=== PATIENT | female | born 1990 | race Caucasian/White ===

== ENCOUNTER 2025-06-20 12:31 | Emergency (ER) | payer BC, SELFPAY ==
--- NOTE | ~2025-06-20 | XR_ITS ---
EXAMINATION: XR CHEST CLINICAL INFORMATION: chest pain and dyspnea COMPARISON: None available. TECHNIQUE: 2 views of the chest were obtained. FINDINGS: The cardiac, hilar, and mediastinal contours are normal. The lungs are clear bilaterally. There is no pneumothorax or pleural effusion. There is no focal osseous or soft tissue abnormality. Mild degenerative spinal changes. XR/XR chest 2V IMPRESSION: No active pulmonary disease. Electronically signed by: Gurpreet Rondon MD 06/20/2025 01:21 PM EDT
--- NOTE | 2025-06-20 12:35 | ECG_ITS ---
Test Reason : CHEST PAIN Blood Pressure : */* mmHG Vent. Rate : 108 BPM Atrial Rate : 108 BPM P-R Int : 122 ms QRS Dur : 88 ms QT Int : 354 ms P-R-T Axes : 48 -54 57 degrees QTcB Int : 474 ms Sinus tachycardia Left anterior fascicular block Cannot rule out Anterior infarct , age undetermined Abnormal ECG No previous ECGs available Referred By: Generic ED Physician Electronically Signed By: NICOLETTE CLARKE
[2025-06-20 12:54] VITALS: BP 131/72; PULSE 107; RESP 16; TEMP 36.7; O2SAT 95; BMI 48.1
--- NOTE | 2025-06-20 12:58 | ED_ITS ---
HPI - General Adult General Chief complaint: Chest Pain Stated complaint: Chest pain, SOB Time Seen by Provider: 06/20/25 17:31 Source: patient Mode of arrival: ambulatory Limitations: no limitations History of Present Illness ED Provider: Rosaura Martinez PA-C HPI narrative: Patient seeks medical attention in the emergency department today for evaluation of right-sided chest wall pain. It is worse with deep inspiration and occurred after having a tuna sandwich this morning. She has not tried to eat again since this time. It is not painful when she swallows, but since pain started after eating, she was worried eating would make worse. She denies history of heartburn and has not tried any medicine to try to make this go away. No ETOH use. Patient does not feel sick denies any globus sensation. No fevers no chills no night sweats does not feel short of breath no difficulty with breathing. Denies any falls or trauma no paresthesias backache abdominal discomfort nausea vomiting or diarrhea. Denies noticing any rashes. Pain is worse with movement. She has not tried to lay down since. Mom with hx of stroke. Patient has no hx of VTE and denies any surgeries. She does do a lot of exertional activity at work but does not recall any specific injury. She does not feel winded or sob. No headaches or backache. Related Data Previous Rx's ?Medication ?Instructions ?Recorded lidocaine 5 % topical patch 1 patch topical DAILY pain #30 ea 06/20/25 Allergies Allergy/AdvReac Type Severity Reaction Status Date / Time No Known Allergies Allergy Verified 06/20/25 12:55 Review of Systems 2 Review of Systems: Yes all other systems are reviewed and are negative [facility] Past Medical History Attestation statement: The following information was validated with the patient. Source: old records reviewed and nursing notes reviewed Social History Social History Advance Directives: No Advance Directives Information Provided: No Physical Exam ED Vital Signs: Vital Signs - 24 hr 06/20/25 12:54 06/20/25 18:54 06/20/25 19:08 Temperature 98.0 F 98.2 F Pulse Rate 107 H 88 88 Respiratory Rate 16 18 18 Blood Pressure 131/72 133/100 H 133/100 H Pulse Oximetry 95 97 97 Oxygen Delivery Method Room Air Room Air Room Air BMI result Body Mass Index 48.1 Const General: cooperative, healthy appearing, comfortable, no acute distress, well developed and acute distress Nutritional Appearance: obese Orientation/consciousness: patient oriented x3 Limitations: language barrier HENMT Head: Yes normal to inspection General nose exam: Normal external nose present Mouth: Normal oral and palatal mucosa present, lip normal, tongue normal, oropharynx normal and moist mucous membranes Teeth and gingiva: dentition normal Throat: Yes posterior oropharynx normal Eyes General: appearance normal, both eyes and all related structures Periorbital: periorbital findings normal Eyelids: Yes eyelids normal Conjunctivae: conjunctivae normal Sclerae: sclerae normal Corneas: corneas normal Pupils: Equal, round and reactive pupils present EOM: EOMs intact bilaterally Neck Neck: Yes normal visual inspection, Yes full ROM and Yes no lymphadenopathy Carotids: normal carotid upstroke Chest Chest palpation & inspection: normal inspection of the chest, normal palpation of entire chest wall and other (right pectoralis major TTP, no crepitus, rash or skin changes) Resp Effort & Inspection: normal respiratory effort, able to speak in complete sentences and other (Negative psoriasis entire testing no scapular winging no chest wall tender) Auscultation: clear to auscultation bilaterally Cardio Jugular venous distension: no JVD Palpation: normal PMI Rate: regular rate Rhythm: regular rhythm Peripheral pulses: Peripheral pulses 2+ throughout GI Inspection: Yes normal to inspection Percussion: Yes normal to percussion Rectal Exam - Female: deferred General: Yes no CVA tenderness Back/Spine/Pelvis Back: no CVA tenderness Skin General skin exam: no rashes or lesions noted Neuro General: patient oriented x3 Cranial nerves: Yes Equal, round and reactive pupils present Course Course Course Narrative: This is a rapid medical exam performed by Burke Jacobson NP: Additional HPI, ROS, PE not included below will be deferred to primary provider. Patient is a 34-year-old female with history of asthma presenting with complaint of chest pain, dyspnea. Plan: EKG, labs, CXR, viral serology Medications Administered Discontinued Medications Generic Name Dose Route Start Last Admin Trade Name Freq PRN Reason Stop Dose Admin Lidocaine/Diphenhydr/Alum/Mg/Simeth 10 ml 06/20/25 18:10 06/20/25 18:19 Mag&Al/Sim/Diphenhyd/Lidocaine 10 Ml Oral.Susp PO 06/20/25 18:11 10 ml ONCE ONE Administration Protocol Medical Decision Making Medical Decision Making [facility] Narrative: Well-appearing 34-year-old female presenting to the emergency department today for evaluation of right-sided chest wall pain that is worse with deep inspiration. No hx of trauma or PE. This occurred after having a tuna sandwich earlier today denies any dyspepsia other GI symptoms. This potentially could be heartburn versus chest wall pain. PERC score for PE is 1 deemed very unlikely. She is low risk for PE with 1.5 points via Wells score. Ptient had RME with EKG troponins and basic labs ordered with EKG. Pneumonia and viral URI seems very unlikely as patient is denying any infectious symptoms. She was tested for COVID flu and RSV this is negative. EKG with evidence for sinus tachycardia and left anterior fascicular block with no prior for comparison. Patient's troponins are negative and flat ACS can be ruled out. Chest x-ray with no findings pneumothorax and pneumonia can be ruled out. There is no widened mediastinum pulses are equal and symmetric she is normotensive is felt very unlikely that patient does not have aortic dissection. She was given a GI cocktail to trial for improvement of symptoms but did discuss potential imaging versus another lab value if unrelieved to rule out definitively a PE however pain is now absent and she is no longer tachycardic. Does not appear to be consistent with anxiety either. Patient given the magic mouthwash cocktail. Patient was reevaluated at beside. She reports slight improvement with her symptoms. She still has anterior chest wall tenderness with pushing on muscle but otherwise other chest pain fully resolved. vitals were rechecked she is not hypoxic or tachycardic this argues even more against having a pulmonary embolism. Patient has declined additional testing for this at this time and requests to go home feeling better. Troponin is negative. ACS can be ruled out. She will follow up outpatient with PCP/cards and return to ED for concerns. Overall impression is likely reflux and thoracic wall strain. Differential Diagnosis Differential Diagnoses: The differential diagnosis associated with the presentation includes See [facility] Admission/Observation Consideration of admission/observation: Escalation of care including admission/observation considered Lab Data [facility] Lab Attestation statement: I reviewed the patient's lab results. 06/20/25 13:32 06/20/25 13:32 Labs: Lab Results 06/20/25 06/20/25 Range/Units 13:32 17:11 WBC 7.7 (4.8-10.8) X10*3/uL RBC 5.24 (4.20-5.50) X10*6/uL Hgb 13.1 (12.0-16.0) g/dl Hct 40.0 (37.0-47.0) % MCV 76.3 L (80.0-98.0) fL MCH 25.0 L (27.0-33.0) pg MCHC 32.8 (31.0-35.0) g/dl RDW 14.3 (11.0-16.0) % Plt Count 329 (160-400) X10*3/uL MPV 10.0 (9.4-12.3) fL Immature Gran % (Auto) 0.4 (0.0-0.4) % Neut % (Auto) 66.4 (45-73) % Lymph % (Auto) 25.8 (20-40) % Harper % (Auto) 5.2 (2-11) % Eos % (Auto) 1.9 (0-4) % Baso % (Auto) 0.3 (0-2) % Lymph # (Auto) 2.0 (1.2-4.9) X10*3/uL Harper # (Auto) 0.4 (0.1-1.2) X10*3/uL Eos # (Auto) 0.2 (0.0-0.4) X10*3/uL Baso # (Auto) 0.0 (0.0-0.2) X10*3/uL Abs Immat Gran (auto) 0.03 (0.00-0.03) X10*3/uL Absolute Neuts (auto) 5.1 (2.0-8.3) x10*3/uL Absolute Nucleated RBC 0.000 (0.0-0.012) X10*3/uL Nucleated RBC % (auto) 0.0 (0.0-0.2) /100WBC Sodium 142 (135-145) mmol/L Potassium 4.3 (3.3-5.1) mmol/L Chloride 104 (96-108) mmol/L Carbon Dioxide 30 H (22-29) mmol/L Anion Gap 12 (12-20) BUN 12 (9-16) mg/dL Creatinine 0.78 (0.5-1.4) mg/dL Estim Creat Clear Calc 134.1 Estimated GFR > 60 Random Glucose 94 (60-115) mg/dL Calcium 9.3 (8.4-10.2) mg/dL Total Bilirubin 0.3 (0.0-1.0) mg/dL AST 18 (5-31) U/L ALT 15 (0-31) U/L Alkaline Phosphatase 67 (39-117) U/L Troponin I High Sens < 2.7 < 2.7 (<3.5-17.0) ng/L Total Protein 7.5 (6.5-8.0) g/dL Albumin 4.4 (3.5-5.0) g/dL Beta HCG, Quant < 2 mIU/mL Influenza Type A (PCR) NEGATIVE (Negative) Influenza Type B (PCR) NEGATIVE (Negative) RSV RNA Qual (PCR) NEGATIVE (Negative) SARS-CoV-2 RNA (RT-PCR) NEGATIVE (Negative) Independent Interpretation I performed an independent interpretation of an: EKG and Plain X-Ray Interpretation: nO life threatening arrythmia Sinus tach. LAFB. No current CP- none for comparison not likely acute or contributory today. CXR No widened mediatstinum. No PTX/ PNA. Radiology Impression Discussion of test interpretation with radiology: I have reviewed the radiologist's reading. Tests considered The following testing was considered but not selected: Would have considered CTA had PE been ML dx. Social Determinants Patient?s care significantly limited by Social Determinants of Health including: Other Social Determinant of Health Discharge Plan Discharge Clinical Impression: Chest pain, Costalchondritis Patient Disposition: Home, Self-Care Instructions: Chest Pain (ED) Additional Instructions: You were seen in the emergency department today due to right-sided chest wall pain that is reproducible with palpation but given your complaint that it hurts worse with inspiration you had a cardiac workup done today that showed no acute coronary syndrome pneumonia or malignant arrhythmia. Your vitals improved without any medical intervention it is felt strongly that you do not have a pulmonary embolism however we did discuss this wrist. Given that your pain is reproducible with the palpation it is felt that your condition is most consistent with inflammation of your chest wall. Have given you a prescription for lidocaine patches for which you can put on the area of most discomfort. Please avoid any aggravating activity. Should you experience any shortness of breath or worsening chest pain please return immediately to emergency department. Hope you continue to feel well. Prescriptions: New lidocaine 5 % adhesive patch,medicated 1 patch topical DAILY Qty: 30 0RF Rx Instructions: leave on most painful area for up to 12 hrs Referrals: Physician,Valentina J [Primary Care Provider, Medical] Stand Alone Forms: Work/School Release Interventions: ED Discharge Assessment Last Done: 06/20/25 19:08 Discharge Date/Time: 06/20/25 19:08 Print Language: Romanian
[2025-06-20 14:16] LABS: MANUAL DIFF FLAG NO
[2025-06-20 14:20] LABS: Hematocrit 40.0 % (37.0-47.0); Hemoglobin 13.1 g/dl (12.0-16.0); Imm Gran Abs Auto 0.03 X10*3/uL (0.00-0.03); Imm Gran Pct Auto 0.4 % (0.0-0.4); Lymphocytes Absolute Auto 2.0 X10*3/uL (1.2-4.9); Mean Corpuscular HGB Conc 32.8 g/dl (31.0-35.0); Mean Corpuscular Hemoglobin 25.0 pg (27.0-33.0); Mean Corpuscular Volume 76.3 fL (80.0-98.0); NRBC Abs Auto 0.000 X10*3/uL (0.0-0.012); NRBC Pct Auto 0.0 /100WBC (0.0-0.2); Platelet Count 329 X10*3/uL (160-400); Red Blood Count 5.24 X10*6/uL (4.20-5.50); White Blood Count 7.7 X10*3/uL (4.8-10.8)
[2025-06-20 14:49] LABS: Alanine Aminotransferase 15 U/L (0-31); Albumin Level 4.4 g/dL (3.5-5.0); Alkaline Phosphatase 67 U/L (39-117); Anion Gap 12 (12-20); Aspartate Amino Transferase 18 U/L (5-31); Blood Urea Nitrogen 12 mg/dL (9-16); Calcium 9.3 mg/dL (8.4-10.2); Carbon Dioxide 30 mmol/L (22-29); Chloride 104 mmol/L (96-108); Creatinine Clr Calc Pharmacy 134.1; Estimated Glomerular Filt Rate > 60; Potassium 4.3 mmol/L (3.3-5.1); Sodium 142 mmol/L (135-145); Total Protein 7.5 g/dL (6.5-8.0)
[2025-06-20 14:51] LABS: Troponin-I High Sensitivity < 2.7 ng/L (<3.5-17.0)
[2025-06-20 14:55] LABS: Resp Syncy Virus RNA Qual PCR NEGATIVE (Negative); SARS COV2 PCR INHOUSE NEGATIVE (Negative)
[2025-06-20 17:38] LABS: Troponin-I High Sensitivity < 2.7 ng/L (<3.5-17.0)
[2025-06-20] MEDS: Mag&Al/Sim/Diphenhyd/Lidocaine 10 ML ORAL.SUSP PO (18:19)
[2025-06-20 18:54] VITALS: BP 133/100; PULSE 88; RESP 18; O2SAT 97
[2025-06-20 19:08] VITALS: BP 133/100; PULSE 88; RESP 18; TEMP 36.8; O2SAT 97
== END 2025-06-20 19:08 | disposition home or self-care (01) ==
PROVIDERS: Registered Nurse Emergency; Emergency Provider Emergency Medicine
DX: R07.89 Other chest pain (principal); M94.0 Chondrocostal junction syndrome [Tietze]
CPT/HCPCS: 36415; 71046; 80053; 84484; 84702; 85025; 87637; 93005; 99283; 99284

== ENCOUNTER → 2025-06-20 12:35 | Outpatient (BNV) | payer BC, SELFPAY | PROVIDERS: Emergency Provider Emergency Medicine; Visit Provider Internal Medicine | DX: I44.4 Left anterior fascicular block (principal); R00.0 Tachycardia, unspecified | CPT/HCPCS: 93010 ==

== ENCOUNTER → 2025-06-20 12:59 | Outpatient (BNV) | payer BC, SELFPAY | PROVIDERS: Visit Provider Radiology Diagnostic Radiology | DX: R06.00 Dyspnea, unspecified (principal) | CPT/HCPCS: 71046 ==

== ENCOUNTER 2025-08-26 15:25 | Emergency (ER) | payer OTHER, BC, SELFPAY ==
--- NOTE | ~2025-08-26 | CT_ITS ---
CLINICAL HISTORY: pain, injury CT lumbar spine without contrast Comparison: None provided Findings: Kyphotic curvature of the thoracic spine. Mild osteopenia. Diffuse idiopathic skeletal hyperostosis No significant degenerative change. Visualized abdominal contents unremarkable. IMPRESSION: 1. Kyphotic curvature of the thoracic spine. 2. Diffuse idiopathic skeletal hyperostosis. 3. Mild osteopenia. 4. No acute osseous injury. This document has been electronically signed by: Arsalan Ramirez MD on 08/26/2025 17:30:05
--- NOTE | ~2025-08-26 | CT_ITS ---
CLINICAL HISTORY: pain, injury CT thoracic spine without contrast Comparison: None provided Findings: Kyphotic curvature of the thoracic spine. Mild osteopenia. Diffuse idiopathic skeletal hyperostosis. No significant degenerative change. Normal visualized lungs and mediastinum. Upper abdominal contents unremarkable. IMPRESSION: 1. Kyphotic curvature of the thoracic spine. 2. Mild osteopenia. 3. Diffuse idiopathic skeletal hyperostosis. 4. No acute osseous injury. This document has been electronically signed by: Arsalan Ramirez MD on 08/26/2025 17:32:39
[2025-08-26 15:28] VITALS: BP 141/61; PULSE 97; RESP 16; TEMP 36.3; O2SAT 98; BMI 47.0
--- NOTE | 2025-08-26 15:29 | ED.GENADULT ---
HPI - General Adult General Chief complaint: Back Pain/Injury Stated complaint: wc injury, meds not working, severe pain Time Seen by Provider: 08/26/25 17:42 Source: patient, RN notes reviewed, old records reviewed and certified court interpreter Mode of arrival: ambulatory Limitations: language barrier History of Present Illness ED Provider: Pauline FERNANDO narrative: 34-year-old female presents for evaluation of back pain. She has left mid to lower back pain that started last Tuesday. She reports while at work she was lifting a heavy bucket off of a high shelf. She had immediate pain in the left back. She followed up with worker's comp and saw a physician provided by her employer. She reports that she was given meloxicam but only took 1 dose in his was changed to Celebrex pain She is also taking methocarbamol. She reports he is medications did not seem to be helping her pain. She was also told that she can not take the methocarbamol prior to going to work The patient is upset because she does not feel that she can adequately work but is being told that she needs to go back to full duty. She states that while she is on light duty for 3 days the sitting all day cause severe pain. She reports that her pain radiates down her left lower back to She denies any numbness, tingling, weakness but has 10/10 pain Related Data Previous Rx's ?Medication ?Instructions ?Recorded lidocaine 5 % topical patch 1 patch topical DAILY pain #30 ea 06/20/25 dexamethasone 4 mg tablet 4 mg PO BID #6 tabs 08/26/25 omeprazole 40 mg capsule,delayed 40 mg PO DAILY #7 caps 08/26/25 release oxycodone 5 mg tablet 5 mg PO Q6H PRN severe pain (scale 08/26/25 score 7-10) #12 tabs Allergies Allergy/AdvReac Type Severity Reaction Status Date / Time No Known Allergies Allergy Verified 08/26/25 15:34 Review of Systems Constitutional: Constitutional: Denies body ache(s), Denies chills, Denies fever(s) and Denies headache(s) Eyes: Eyes: Denies blurry vision ENT: Denies dizziness and Denies headache(s) Cardiovascular: Cardiovascular: Denies chest pain and Denies dyspnea on exertion Respiratory: Respiratory: Denies cough and Denies dyspnea on exertion Gastrointestinal: Gastrointestinal: Denies abdominal pain, Denies nausea and Denies vomiting Musculoskeletal: Musculoskeletal: Reports back pain, Denies numbness, Reports radiating pain into limb and Denies stiffness Integumentary/Breasts: Skin/Breast: Denies rash Neurologic: Denies dizziness, Denies headache(s) and Denies numbness Psychiatric: Psychiatric: Denies anxiety PMFSH Social History Social History Smoked in Last 30 Days: No Use of substances other than those prescribed or required for medical reasons: No Advance Directives: No Advance Directives Information Provided: No Do you have a plan to hurt others: No Plan Patient : No Physical Exam ED Vital Signs: Vital Signs - 24 hr 08/26/25 15:28 08/26/25 17:26 08/26/25 18:49 Temperature 97.3 F 98.4 F 98.4 F Pulse Rate 97 87 87 Respiratory Rate 16 16 16 Blood Pressure 141/61 H 156/94 H 156/94 H Pulse Oximetry 98 97 97 Oxygen Delivery Method Room Air Room Air Room Air BMI result Body Mass Index 47.0 Const General: healthy appearing, comfortable, no acute distress, alert and awake Nutritional Appearance: well nourished Orientation/consciousness: patient oriented x3 HENMT Head: Yes normocephalic and Yes atraumatic Eyes Eyelids: Yes eyelids normal Conjunctivae: conjunctivae normal Sclerae: sclerae normal Corneas: corneas normal Pupils: Equal, round and reactive pupils present EOM: EOMs intact bilaterally Neck Neck: Yes full ROM Resp Effort & Inspection: normal respiratory effort, able to speak in complete sentences and not labored GI Inspection: No distended Palpation (GI): Soft to palpation, not firm, nontender, no guarding and not rigid Back/Spine/Pelvis Other: Tenderness in the left thoracic and left lumbar paraspinous region. No vertebral tenderness in the thoracic or lumbar spine. Straight leg raise positive on the left. Skin General skin exam: elasticity normal Neuro General: patient oriented x3 Cranial nerves: Yes Equal, round and reactive pupils present and Yes Bilaterally intact EOM present Cognition (Neuro): normal cognition Motor exam (neuro): 5/5 motor strength present throughout Extrem Other: Moving all extremities well without any obvious deformities Course Course Course Narrative: Rapid medical examination performed in triage by Christy Rico PA-C. Patient is a 34 year old assigned female at presenting to the emergency department with back pain. Patient states a week ago she attempted to lift a 50lbs-toi bucket and her back froze and she is now having pain. Patient states that she saw [facility] occupational medication where she was given anti-inflammatories and muscle relaxers. Patient states that she got an x-ray that showed evidence of issues with the bones and the muscles. Detailed physical exam and review of systems are deferred to the mid level clinician. Imaging ordered. Patient placed back in the waiting room pending room availability and results. Medications Administered Discontinued Medications Generic Name Dose Route Start Last Admin Trade Name Cristel PRN Reason Stop Dose Admin Dexamethasone 4 mg 08/26/25 18:03 08/26/25 18:15 Dexamethasone 4 Mg Tablet PO 08/26/25 18:04 4 mg ONCE ONE Administration Morphine Sulfate 4 mg 08/26/25 18:03 08/26/25 18:15 Morphine Sulfate 4 Mg/Ml Cartridge IM 08/26/25 18:04 4 mg ONCE ONE Administration Protocol Ondansetron HCl 4 mg 08/26/25 18:03 08/26/25 18:15 Ondansetron Odt 4 Mg Tab.Rapdis TRANSLINGU 08/26/25 18:04 4 mg ONCE ONE Administration Medical Decision Making Medical Decision Making MDM Narrative: 34-year-old female presents for evaluation of back pain. She reports having had an outpatient x-ray. Denies any warning signs for cauda equina syndrome, no incontinence, weakness, numbness or tingling. Her strength is 5/5 and equal bilaterally. She has a positive straight leg raise in the left, raising the suspicion for sciatica. She had a CT scan of the thoracic and lumbar spine ordered in triage. This shows evidence of scoliosis but no fractures or compression deformities. The patient's vital signs are stable, she is not . We will treat her pain with a dose of dexamethasone and morphine IM. The patient reports that she is prediabetic and I encouraged her to keep an eye on her sugars while taking dexamethasone as it will likely increase son. I also ordered omeprazole to take as she is taking steroids with NSAIDs for GI prophylaxis Differential Diagnosis Differential Diagnoses: The differential diagnosis associated with the presentation includes Muscle strain Contusion Sciatica Radiculopathy Compression fracture Lab Data Labs: Lab Results 08/26/25 Range/Units 15:59 Beta HCG, Quant < 2 mIU/mL Radiology Impression Discussion of test interpretation with radiology: I have reviewed the radiologist's reading. Radiologist Impression: ADDENDUMThis document has been electronically signed by: Arsalan Ramirez MD on 08/26/2025 17:30:05 ADDENDUM: Correction: CT of the lumbar spine demonstrates mild osteopenia. Exaggerated lordotic curvature of the lumbar spine. No fracture or dislocation of the lumbar spine. This document has been electronically signed by: Arsalan Ramirez MD on 08/26/2025 18:04:16 Addendum Dictated By: Arsalan Ramirez MD Addendum Signed By: <Electronically signed by Arsalan Ramirez MD in [place]> 08/26/251804 Addendum Cosigned By: DD/ TD/TT: 08/26/25 CLINICAL HISTORY: pain, injury CT lumbar spine without contrast Comparison: None provided Findings: Kyphotic curvature of the thoracic spine. Mild osteopenia. Diffuse idiopathic skeletal hyperostosis No significant degenerative change. Visualized abdominal contents unremarkable. IMPRESSION: 1. Kyphotic curvature of the thoracic spine. 2. Diffuse idiopathic skeletal hyperostosis. 3. Mild osteopenia. 4. No acute osseous injury. This document has been electronically signed by: Arsalan Ramirez MD on 08/26/2025 17:30:05 Discharge Plan Discharge Clinical Impression: Back pain Patient Disposition: Home, Self-Care Instructions: Acute Low Back Pain (ED) Additional Instructions: Your CT scan showed kyphosis of the thoracic spine and low doses of the lumbar spine. These are both slight abnormal curvature of the spine. You had no obvious compression deformities or fractures to the back. Your pain is a 3 related to a disc herniation. You may take oxycodone 5 mg every 6 hours as needed for severe breakthrough pain. Again you should not take this prior to going to work in you should not drive or drink alcohol with it Take dexamethasone 4 mg twice daily for the next 3 days. Follow up with your primary doctor, return for new or worsening symptoms. If your pain does not improve within 1 week, you may benefit from an outpatient MRI to better evaluate your back pain Prescriptions: New dexamethasone 4 mg tablet 4 mg PO BID Qty: 6 0RF omeprazole 40 mg capsule,delayed release(DR/EC) 40 mg PO DAILY Qty: 7 0RF oxycodone 5 mg tablet 5 mg PO Q6H PRN (Reason: severe pain (scale score 7-10)) Qty: 12 0RF Rx Instructions: Partial Fill upon patient request. No Action lidocaine 5 % adhesive patch,medicated 1 patch topical DAILY Qty: 30 0RF Rx Instructions: leave on most painful area for up to 12 hrs Stand Alone Forms: Work/School Release Interventions: ED Discharge Assessment Last Done: 08/26/25 18:49 Discharge Date/Time: 08/26/25 18:52 Print Language: Vietnamese
[2025-08-26 17:26] VITALS: BP 156/94; PULSE 87; RESP 16; TEMP 36.9; O2SAT 97
--- OUTSIDE RECORDS SUMMARY | 2025-08-26 17:46 | XMS_ITS | Encounter Summary ---
Author Organization [facility] Address [address] [place] [address] Care Team Providers Care Security Incident Response Specialist Name Role Phone Frankie Bains MD Primary Care Pr ovider Reason for Visit * Reason Onset Date Comments prior auth 07/26/2025 Encounter Details Date Type Department Care Team ([facility] st Contact Info) Description 07/26/2025 Telephone Pulmonology - [place] [address] [facility] [address] [place] [phone] Gene Quevedo MD [address] [place] [phone] Social History Tobacco Use Types Packs/Day Years Used Date Smoking Tobacco: Former Smokeless Tobacco: Never Alcohol Use Standard Drinks/Week Comments Not Currently 0 (1 standard drink = 0.6 oz pur e alcohol) Comments No Sex and Gender Information Value Date Recorded Sex Assigned at Not on file Legal Sex Female 8:42 PM EST Gender Identity Not on file Sexual Orientation Not on file documented as of this encounter Progress Notes * Geovanna Álvarez MA - 07/29/2025 11:00 AM EDT Albuterol inhaler denied the preferred drugs of the plan are albuterol sulfate Approved * Geovanna Álvarez MA - 07/29/2025 9:16 AM EDT PA for Albuterol inhaler initiated on cmm Dx J45.20 * Danette Julio - 07/26/2025 3:12 PM EDT Prior auth needed for Albuterol Sulfate hfa 108(90 base( mcg/act aerosol Iqbal: [id number] documented in this encounter Plan of Treatment Upcoming Encounters Date Type Department Care Team (Late st Contact Info) Description 08/30/2025 2:15 PM EDT Ancillary Procedure [facility] Cardiology [facility] [address] [address] 09/19/2025 3:45 PM EST Office Visit Pulmonology [facility] [address] [facility] [address] [place] [phone] Gene Quevedo MD [address] [place] [phone] 10/15/2025 3:30 PM EST Nutrition Bariatric Surgery - [place] [address] [facility] [address] [place] [address] [place] [phone] 10/17/2025 4:30 PM EST Office Visit Adult Medicine [address] [phone] Chasidy Stokes PA [address] [place] [address] 10/18/2025 7:00 AM EST Ancillary Procedure [facility] Cardiology [facility] [address] [facility] [address] [place] [address] 01/14/2026 8:15 AM EST Office Visit Bariatric Surgery - [place] [address] [facility] [address] [place] [phone] Marilyn Herr MD [address] [place] [phone] documented as of this encounter Visit Diagnoses Not on filedocumented in this encounter Care Teams Security Incident Response Specialist Relationship Specialty Start Date End Date Frankie Bains MD [address] [place] [phone] PCP - General 03/04/23 documented as of this encounter
--- OUTSIDE RECORDS SUMMARY | 2025-08-26 17:46 | XMS_ITS | Clinical Summary ---
Author Organization [address] Address [address] [place] [phone] Phone Care Team Providers Care Opinion Polls Survey Worker Name Role Phone Frankie Bains MD Primary Care Pr ovider Allergies No known active allergies Medications cholecalciferol (VITAMIN D-3) 50 mcg (2,000 unit) tablet Take 1 tablet (2,000 Units total) by mouth 1 (one) time each day. 4 Active miscellaneous medical supply misc Use to check FSG once a day 4 Active miscellaneous medical supply misc Blood Glucose Calibration (Accu-Chek Comfort Curve) Solution Use to check FSG once a day 4 Active Accu-Chek Softclix Lancets Lancet Devices (Accu-Chek Softclix Lancet Dev) Misc Use to check FSG once a day 4 Active albuterol 2.5 mg /3 mL (0.083 %) nebulizer solution Take 1 Vial by nebulization every 4 hours as needed for Wheezing, Shortness of Breath or Cough. 3 Active budesonide (Pulmicort Flexhaler) 90 mcg/actuation inhaler Inhale 1 puff by mouth 2 (two) times a day. 1 each 2 5 Active albuterol HFA (PROAIR HFA ; PROVENTIL HFA ; VENTOLIN HFA) 90 mcg/actuation inhalerIndicatio ns:Moderate persistent asthma without complication Inhale 2 puffs by mouth every 4 (four) hours if needed for wheezing or shortness of breath. 6.7 g 2 5 Active meloxicam (MOBIC) 15 mg tablet Take 1 tablet (15 mg total) by mouth 1 (one) time each day if needed (pain). 30 tablet 2 5 Active atorvastatin (LIPITOR) 10 mg tablet Take 1 tablet (10 mg total) by mouth at bedtime. 90 tablet 1 5 Active fluticasone-umec lidinium-vilante rol (Trelegy Ellipta) 100-62.5-25 mcg inhaler Inhale 1 puff (100 mcg total) by mouth 1 (one) time each day. Rinse mouth with water after use to reduce aftertaste and incidence of candidiasis. Do not swallow. 1 each 5 Active montelukast (SINGULAIR) 10 mg tablet Take 1 tablet (10 mg total) by mouth at bedtime. 30 each 5 026 Active albuterol HFA (Ventolin HFA) 90 mcg/actuation inhaler Inhale 2 puffs by mouth every 6 (six) hours if needed for wheezing. 6.7 g 5 026 Active albuterol HFA (Ventolin HFA) 90 mcg/actuation inhaler Inhale 2 puffs by mouth every 6 (six) hours if needed for wheezing. 18 g 11 5 026 Active semaglutide (Ozempic) 0.25 mg or 0.5 mg (2 mg/3 mL) injection penIndications:T ype 2 diabetes mellitus without complication, without long-term current use of insulin ([facility] V24, [facility] V28) Inject 0.25 mg under the skin every 7 (seven) days. 2 mL 5 Active ergocalciferol (VITAMIN D-2) 1,250 mcg (50,000 unit) capsuleIndicatio ns:Vitamin D deficiency Take 1 capsule (50,000 Units total) by mouth 1 (one) time per week for 12 doses. 12 each 5 025 Active Active Problems Problem Noted Date Diagnosed Date Vitamin D deficiency 04/16/2024 Type 2 diabetes mellitus wit hout complication, without long-term current use of insulin ([facility] V24, [facility] V28) 01/24/2024 Obstructive sleep apnea syndrome 01/20/2024 Dyslipidemia 01/20/2024 Bilateral carpal tunnel syndrome 09/13/2023 Anxiety 09/13/2023 Mild intermittent asthma without complication Elevated blood pressure read ing in office without diagnosis of hypertension 08/09/2023 Class 3 severe obesity with serious comorbidity and body mass index (BMI) of 45.0 to 49.9 in adult ([facility] V24, [facility] V28) Encounters Date Type Department Care Team Description 08/26/2025 Nurse Triage Adult Medicine [address] [phone] Frankie Bains MD 08/20/2025 Telephone Adult Medicine [address] [phone] Nikkie Stoner MA 08/15/2025 4:00 PM EDT Office Visit Adult [address] [phone] Chasidy Stokes PA Type 2 diabetes mellitus without complication, without long-term current use of insulin ([facility] V24, [facility] V28) (Primary Dx); Class 3 severe obesity with serious comorbidity and body mass index (BMI) of 45.0 to 49.9 in adult, unspecified obesity type ([facility] V24, [facility] V28); Dyslipidemia; Elevated blood pressure reading in office without diagnosis of hypertension; Anxiousness; Pain in both knees, unspecified chronicity; Need for prophylactic vaccination and inoculation against influenza 08/07/2025 Telephone Pulmonology [facility] [address] [phone] Gene Quevedo MD 08/02/2025 Telephone Pulmonology [facility] [address] [phone] Gene Quevedo MD 07/31/2025 Telephone Pulmonology [facility] 175 [facility] [address] [place] [address] Gene Quevedo MD 07/30/2025 2:15 PM EDT Office Visit Bariatric Surgery - [facility] 175 [facility] [address] [place] [phone] Marilyn Herr MD Morbid obesity with body mass index (BMI) of 40.0 to 49.9 ([facility] V24, [facility] V28) (Primary Dx) 07/30/2025 Telephone Pulmonology [facility] 175 [facility] [address] [place] [phone] Gene Quevedo MD 07/26/2025 Telephone Pulmonology [facility] [address] [phone] Gene Quevedo MD 07/19/2025 Telephone Pulmonology [facility] [address] [phone] Gene Quevedo MD 07/18/2025 3:45 PM EDT Office Visit Pulmonology - [place] [address] [phone] Gene Quevedo MD Obstructive sleep apnea syndrome (Primary Dx); Morbid obesity due to excess calories ([facility] V24, [facility] V28); Nocturnal hypoxemia; Moderate asthma, unspecified whether complicated, unspecified whether persistent; Moderate persistent asthma without complication 07/17/2025 4:00 PM EDT Office Visit Adult [address] [phone] Chasidy Stokes PA Intermittent chest pain (Primary Dx); Elevated blood pressure reading in office without diagnosis of hypertension 06/24/2025 Telephone Adult Medicine [address] [phone] Frankie Bains MD 06/05/2025 3:45 PM EDT Office Visit Bariatric Surgery - [address] [place] [address] Marilyn Herr MD Dyslipidemia; Morbid obesity with body mass index (BMI) of 40.0 to 49.9 ([facility] V24, [facility] V28) from Last 3 Months Immunizations Immunization Administration Dates Next Due Influenza Quadravalent, MDCK , 0.5ml, preservative free (Flucelvax) 6mo and older 08/09/2023 Influenza trivalent, MDCK, 0 .5mL, preservative free (Flucelvax) 6mo and older 08/15/2025 Tdap Tetanus diptheria acell ular pertussis (Boostrix; Adacel) 7yo and older 01/20/2024 Surgical History Surgery Date Site/Laterality Comments OTHER SURGICAL HISTORY PROCEDURE: DENIES PREVIOUS SURGERY Medical History Medical History Date Comments Prediabetes 01/20/2024 DX:Prediabetes Family History Medical History Relation Name Comments Colon cancer Brother Colon cancer Father Stroke Maternal Grandfather anaplastic thyroid cancer Maternal Grandfather Asthma Mother Depression Mother Diabetes Mother Hypertension Mother Stroke Mother ESRD Paternal Grandfather Breast cancer Paternal Grandmother Colon cancer Paternal Grandmother Relation Name Status Comments Brother Alive Father Alive Maternal Grandfather Alive Mother Paternal Grandfather Alive Paternal Grandmother Alive Sister Alive Social History Tobacco Use Types Packs/Day Years Used Date Smoking Tobacco: Former Smokeless Tobacco: Never Tobacco Cessation:Counseling Given: Not Answered Alcohol Use Standard Drinks/Week Comments Not Currently 0 (1 standard drink = 0.6 oz pur e alcohol) Comments No Sex and Gender Information Value Date Recorded Sex Assigned at Not on file Legal Sex Female 8:42 PM EST Gender Identity Not on file Sexual Orientation Not on file Obstetrics History Last Filed Vital Signs Vital Sign Reading Time Taken Comments Blood Pressure 120/58 08/15/2025 3:48 PM EDT A Pulse 100 08/15/2025 3:33 PM EDT Temperature 36.3 C (97.3 F) 08/15/2025 3:33 PM EDT Respiratory Rate 18 07/18/2025 3:33 PM EDT Oxygen Saturation 96% 08/15/2025 3:33 PM EDT Inhaled Oxygen Concentration - - Weight 125 kg (276 lb 9.6 oz) 08/15/2025 3:33 PM EDT Height 162.6 cm (5' 4.02 ) 08/15/2025 3:33 PM ED T Body Mass Index 47.45 08/15/2025 3:33 PM EDT Plan of Treatment Upcoming Encounters Date Type Department Care Team (Late st Contact Info) Description 08/30/2025 2:15 PM EDT Ancillary Procedure [facility] [address] [phone] 09/19/2025 3:45 PM EST Office Visit Pulmonology - [place] [facility] [address] [place] [phone] Gene Quevedo MD [address] [place] [phone] 10/15/2025 3:30 PM EST Nutrition Bariatric Surgery - [place] [address] [phone] [place] [phone] 10/17/2025 4:30 PM EST Office Visit Adult Medicine [address] [phone] Chasidy Stokes PA [address] [place] [address] 10/18/2025 7:00 AM EST Ancillary Procedure [facility] [address] [phone] 01/14/2026 8:15 AM EST Office Visit Bariatric Surgery - [address] [phone] Marilyn Herr MD [address] [place] [phone] Health Maintenance Due Date Last Done Comments Diabetes: Annual Retina Eye Exam 2000 Hepatitis B Vaccines (1 of 3 - 19+ 3-dose series) 2009 Pneumococcal Vaccine: Pediatrics (0 to 5 Years) and At-Risk Patients (6 to 49 Years) (1 of 2 - PCV) 2009 Cervical Cancer Screening: Pap Smear 2011 HPV Vaccines (1 - 3-dose SCDM series) 2017 HIV Screening 12/09/2023 Hepatitis C Screening 12/09/2023 Social Influencers of Health Screening 12/09/2023 Depression Screening 11/14/2024 Diabetes: Annual Foot Exam 04/16/2025 04/16/2024, COVID-19 Vaccine ( season) 2025 2021 Diabetes: Blood Sugar Control Test (HGBA1C) 02/14/2026 08/16/2025, 05/03/2025, 08/16/2024, Additional history exists Diabetes: Annual Urine Albumin-Creatinine Ratio (uACR) 05/03/2026 05/03/2025, 04/16/2024, 04/16/2024 Diabetes: Annual GFR (Glomerular Filtration Rate) 08/15/2026 08/15/2025, 05/03/2025, 08/16/2024, Additional history exists Cholesterol Screening (Lipid Panel) 08/16/2030 08/16/2025, 05/03/2025, 08/16/2024, Additional history exists DTaP,Tdap,and Td Vaccines (2 - Td or Tdap) 01/19/2034 01/20/2024 RSV Immunization Adult Patients (1 - 1-dose 75+ series) 2065 Influenza Vaccine Completed 08/15/2025, 08/09/2023 HIB Vaccines Aged Out No longer eligi ble based on patient's age to complete this topic Hepatitis A Vaccines Aged Out No long er eligible based on patient's age to complete this topic IPV Vaccines Aged Out No longer eligi ble based on patient's age to complete this topic MMR Vaccines Aged Out No longer eligi ble based on patient's age to complete this topic Meningococcal ACWY Vaccine Aged Out N o longer eligible based on patient's age to complete this topic Meningococcal B Vaccine Aged Out No l onger eligible based on patient's age to complete this topic RSV Immunization Patients Under 20 months Aged Out No longer eligible based on patient's age to complete this topic Varicella Vaccines Aged Out No longer eligible based on patient's age to complete this topic Procedures Procedure Name Priority Date/Time Associated Diagnosis Comments LIPID PANEL WITH REFLEX TO DIRECT LDL Routine 08/16/2025 4:29 PM EDT Type 2 diabetes mellitus without complication, without long-term current use of insulin (CMS/HCC V24, CMS/HCC V28) HEMOGLOBIN A1C Routine 08/16/2025 4:14 PM EDT Type 2 diabetes mellitus without complication, without long-term current use of insulin (CMS/HCC V24, CMS/HCC V28) HELICOBACTER PYLORI BREATH TEST Routine 08/15/2025 4:36 PM EDT Class 3 severe obesity with serious comorbidity and body mass index (BMI) of 45.0 to 49.9 in adult, unspecified obesity type (CMS/HCC V24, CMS/HCC V28) CORTISOL Routine 08/15/2025 4:35 PM EDT Class 3 severe obesity with serious comorbidity and body mass index (BMI) of 45.0 to 49.9 in adult, unspecified obesity type (CMS/HCC V24, CMS/HCC V28) FOLATE Routine 08/15/2025 4:35 PM EDT Class 3 severe obesity with serious comorbidity and body mass index (BMI) of 45.0 to 49.9 in adult, unspecified obesity type (CMS/HCC V24, CMS/HCC V28) MAGNESIUM Routine 08/15/2025 4:35 PM EDT Class 3 severe obesity with serious comorbidity and body mass index (BMI) of 45.0 to 49.9 in adult, unspecified obesity type (CMS/HCC V24, CMS/HCC V28) NICOTINE AND COTININE Routine 08/15/2025 4:35 PM EDT Class 3 severe obesity with serious comorbidity and body mass index (BMI) of 45.0 to 49.9 in adult, unspecified obesity type (CMS/HCC V24, CMS/HCC V28) PARATHYROID HORMONE INTACT Routine 08/15/2025 4:35 PM EDT Class 3 severe obesity with serious comorbidity and body mass index (BMI) of 45.0 to 49.9 in adult, unspecified obesity type (CMS/HCC V24, CMS/HCC V28) VITAMIN B1 Routine 08/15/2025 4:35 PM EDT Class 3 severe obesity with serious comorbidity and body mass index (BMI) of 45.0 to 49.9 in adult, unspecified obesity type (CMS/HCC V24, CMS/HCC V28) VITAMIN B12 Routine 08/15/2025 4:35 PM EDT Class 3 severe obesity with serious comorbidity and body mass index (BMI) of 45.0 to 49.9 in adult, unspecified obesity type (CMS/HCC V24, CMS/HCC V28) VITAMIN D 25 HYDROXY Routine 08/15/2025 4:35 PM EDT Class 3 severe obesity with serious comorbidity and body mass index (BMI) of 45.0 to 49.9 in adult, unspecified obesity type (CMS/HCC V24, CMS/HCC V28) COMPREHENSIVE METABOLIC PANEL Routine 08/15/2025 4:35 PM EDT Type 2 diabetes mellitus without complication, without long-term current use of insulin ([facility] V24, [facility] V28) CBC WITH AUTO DIFFERENTIAL Routine 07/17/2025 4:54 PM EDT Intermittent chest pain D-DIMER Routine 07/17/2025 4:54 PM EDT Intermittent chest pain CBC AND DIFFERENTIAL Routine 07/17/2025 4:54 PM EDT Intermittent chest pain FERRITIN Routine 07/17/2025 4:54 PM EDT Intermittent chest pain IRON AND TIBC Routine 07/17/2025 4:54 PM EDT Intermittent chest pain MICROALBUMIN CREATININE URINE RATIO Routine 05/03/2025 7:55 AM EDT Type 2 diabetes mellitus without complication, without long-term current use of insulin ([facility] V24, [facility] V28) DIABETES FOOT EXAM Routine 04/16/2024 from Last 3 Months or Most Recently Relevant to Health Maintenance Results * (ABNORMAL) Lipid panel with reflex to direct LDL (08/16/2025 4:29 PM EDT) Cholesterol 213(H) 0 - 200 mg/dL LAB CHEMISTRY METHOD [facility] 6[facility] Triglycerides 115 0 - 150 mg/dL LAB CHEMISTRY METHOD 08/16/2025 6:59 PM [facility] HDL 52 >=40 mg/dL LAB CHEMISTRY METHOD 08/16/2025 6:59 PM T [facility] LDL Calculated 138(H) 0 - 100 mg/dL LAB CHEMISTRY METHOD 08/16/2025 6:59 PM T [facility] Comment:Estimated LDL Calcul ated using equation: Total cholesterol - HDL cholesterol - (Triglycerides/5) VLDL Cholesterol Robi 23 mg/dL LAB CHEMISTRY METHOD 08/16/2025 6:59 PM [facility] Non HDL Chol. (LDL+VLDL) 161(H) <145 mg/dL LAB CHEMISTRY METHOD 08/16/2025 6:59 PM EDT [facility] Chol/HDL Ratio 4.1 0.0 - 4.4 LAB CHEMISTRY METHOD 08/16/2025 6:59 PM [facility] Blood Venous blood specimen / Unknown Venipuncture / Unknown 08/16/2025 4:29 PM EDT 08/16/2025 4:29 PM EDT us Chasidy NEWTON LAB BLOOD ORDERABLES Final Re sult Performing Organization Address City/[facility]/ZIP Co de Phone Number [facility] [address] [place] [address], * Hemoglobin A1c (08/16/2025 4:14 PM EDT) Pathologist [facility] Hemoglobin A1C 6.4 <6.5 % LAB CHEMISTRY METHOD 08/16/2025 8:29 PM EDT [facility] Mean Bld Glu Estim. 137 mg/dL LAB CHEMISTRY METHOD 08/16/2025 8:29 PM EDT [facility] Blood Venous blood specimen / Unknown Venipuncture / Unknown 08/16/2025 4:14 PM EDT 08/16/2025 4:14 PM EDT us Chasidy [place] LAB BLOOD ORDERABLES Final Re sult Performing Organization Address [facility] Co de Phone Number [facility] [address] [place] [address], [place] [phone] * Helicobacter pylori breath test (08/15/2025 4:36 PM EDT) [facility] H Pylori Breath Test Negative Negative LAB CHEMISTRY METHOD 08/16/2025 8:44 AM EDT [facility] Breath Oral cavity structure / Unknown Non-blood Collection / Unknown 08/15/2025 4:36 PM EDT 08/15/2025 4:36 PM EDT Marilyn Herr MD LAB BODY FLUIDS AND STOOLS O RDERABLES Final Result Performing Organization Address City/[facility]/ZIP Co de Phone Number [facility] [address] [place] [address], [place] [phone] * Nicotine and cotinine (08/15/2025 4:35 PM EDT) Pathologist [facility] Nicotine <2.0 <2.0 ng/mL 08/20/2025 6:32 AM EDT [facility] Cotinine <2.0 <2.0 ng/mL 08/20/2025 6:32 AM EDT [facility] Comment: Additional Reference Ranges: Active Tobacco Passive Abstinence User Exposure 2 Weeks and more Nicotine 30 - 50 ng/mL <2 ng/mL <2 ng/mL Cotinine 200 - 800 ng/mL <8 ng/mL <2 ng/mL Reference Ranges from: Clin. Chem.; 48:0341-3337 (2002) Direct any interpretive questions to the toxicology laboratory. This is for medical use only, it is not intended for forensic use. If applicable, any drug confirmation testing reported here was developed and the performance characteristics determined by [facility]. This confirmation testing has not been cleared or approved by the FDA. The laboratory is regulated under CLIA as qualified to perform high-complexity testing. This test is used for patient testing purposes. It should not be regarded as investigational or for research. Test performed at [facility], [address], [place] [address] Dia Paulino MD, PhD - Sales Technician Blood Venous blood specimen / Unknown Venipuncture / Unknown 08/15/2025 4:35 PM EDT 08/15/2025 4:35 PM EDT us Marilyn Herr MD LAB BLOOD ORDERABLES Final R esult [facility] [address] [place] [address] * (ABNORMAL) Vitamin D 25 hydroxy (08/15/2025 4:35 PM EDT) [facility] Vit D, 25-Hydroxy 11.3(L) 30.0 - 80.0 ng/mL LAB CHEMISTRY METHOD 08/15/2025 7:13 PM EDT [facility] Blood Venous blood specimen / Unknown Venipuncture / Unknown 08/15/2025 4:35 PM EDT 08/15/2025 4:35 PM EDT Marilyn Herr MD LAB BLOOD ORDERABLES Final R esult Performing Organization Address [facility]/ZIP Co de Phone Number [facility] [address] [place] [address], [place] [phone] * Vitamin B1 (08/15/2025 4:35 PM EDT) Vitamin B1 Whole Blood 71 38 - 122 ug/L 08/21/2025 1:40 PM EDT [facility] Comment: This test was developed and the performance characteristics determined by [facility]. It has not been cleared or approved by the FDA. The laboratory is regulated under CLIA as qualified to perform high-complexity testing. This test is used for patient testing purposes. It should not be regarded as investigational or for research. Test performed at [facility], [address], [place] [address] Dia Paulino MD, PhD - Sales Technician Blood Venous blood specimen / Unknown Venipuncture / Unknown 08/15/2025 4:35 PM EDT 08/15/2025 4:35 PM EDT Marilyn Herr MD LAB BLOOD ORDERABLES Final R esult Performing Organization Address City/[facility]/ZIP Co de Phone Number [facility] [address] [place] [address] * (ABNORMAL) Parathyroid hormone intact (08/15/2025 4:35 PM EDT) PTH 94.3(H) 18.5 - 88.0 pcg/mL LAB CHEMISTRY METHOD 08/15/2025 7:13 PM EDT [facility] Blood Venous blood specimen / Unknown Venipuncture / Unknown 08/15/2025 4:35 PM EDT 08/15/2025 4:35 PM EDT us Marilyn Herr MD LAB BLOOD ORDERABLES Final R esult [facility] [address] [place] [address], [place] [phone] * Magnesium (08/15/2025 4:35 PM EDT) [facility] Magnesium 2.1 1.9 - 2.6 mg/dL LAB CHEMISTRY METHOD 08/15/2025 6:43 PM EDT [facility] Blood Venous blood specimen / Unknown Venipuncture / Unknown 08/15/2025 4:35 PM EDT 08/15/2025 4:35 PM EDT us Marilyn Herr MD LAB BLOOD ORDERABLES Final R esult [facility] [address] [place] [address], [place] [phone] * Folate (08/15/2025 4:35 PM EDT) [facility] Folate 12.6 2.8 - 17.0 ng/ml LAB CHEMISTRY METHOD 08/15/2025 7:09 PM EDT [facility] Blood Venous blood specimen / Unknown Venipuncture / Unknown 08/15/2025 4:35 PM EDT 08/15/2025 4:35 PM EDT us Marilyn Herr MD LAB BLOOD ORDERABLES Final R esult [facility] [address] [place] [address], [place] [phone] * Vitamin B12 (08/15/2025 4:35 PM EDT) [facility] Vitamin B-12 456 250 - 900 pcg/mL LAB CHEMISTRY METHOD 08/15/2025 7:09 PM EDT [facility] Blood Venous blood specimen / Unknown Venipuncture / Unknown 08/15/2025 4:35 PM EDT 08/15/2025 4:35 PM EDT us Marilyn Herr MD LAB BLOOD ORDERABLES Final R esult Performing Organization Address City/[facility]/ZIP Co de Phone Number [facility] [address] [place] [address], [place] [phone] * Cortisol (08/15/2025 4:35 PM EDT) Cortisol 2.5 mcg/dL LAB CHEMISTRY METHOD 08/15/2025 8:04 PM EDT [facility] Blood Venous blood specimen / Unknown Venipuncture / Unknown 08/15/2025 4:35 PM EDT 08/15/2025 4:35 PM EDT Narrative [facility] - 08/15/2025 8:04 PM EDT CORTISOL REFERENCE RANGE 8 AM SPEC: 5.0-23.0 mcg/dL 4 PM SPEC: 3.0-16.0 mcg/dL 8 PM SPEC: <5.0 mcg/dL us Marilyn Herr MD LAB BLOOD ORDERABLES Final R esult Performing Organization Address City/[facility]/ZIP Co de Phone Number [facility] [address] [place] [address], [place] [phone] * Comprehensive metabolic panel (08/15/2025 4:35 PM EDT) Sodium 138 133 - 145 mmol/L LAB CHEMISTRY METHOD 08/15/2025 7:09 PM EDT [facility] Potassium 4.7 3.5 - 5.5 mmol/L LAB CHEMISTRY METHOD 08/15/2025 7:09 PM EDT [facility] Chloride 102 96 - 110 mmol/L LAB CHEMISTRY METHOD 08/15/2025 7:09 PM [facility] CO2 29 21 - 32 mmol/L LAB CHEMISTRY METHOD 08/15/2025 7:09 PM [facility] Anion Gap 7 3 - 11 LAB CHEMISTRY METHOD 08/15/2025 7:09 PM [facility] Glucose 85 70 - 100 mg/dL LAB CHEMISTRY METHOD 08/15/2025 7:09 PM [facility] BUN 16 5 - 25 mg/dL LAB CHEMISTRY METHOD 08/15/2025 7:09 PM [facility] Creatinine 0.85 0.50 - 1.10 mg/dL LAB CHEMISTRY METHOD 08/15/2025 7:09 PM [facility] eGFR 92 >=60 mL/min/1. 73m2 LAB CHEMISTRY METHOD 08/15/2025 7:09 PM [facility] Comment:Calculation based on the Chronic Kidney Disease Epidemiology Collaboration (CKD-EPI) equation refit without adjustment for race. BUN/Creatinine Ratio 18.8 LAB CHEMISTRY METHOD 08/15/2025 7:09 PM [facility] Calcium 9.8 8.5 - 10.5 mg/dL LAB CHEMISTRY METHOD 08/15/2025 7:09 PM [facility] AST (SGOT) 16 10 - 42 unit/L LAB CHEMISTRY METHOD 08/15/2025 7:09 PM [facility] ALT (SGPT) 23 10 - 60 unit/L LAB CHEMISTRY METHOD 08/15/2025 7:09 PM [facility] Alkaline Phosphatase 75 42 - 121 unit/L LAB CHEMISTRY METHOD 08/15/2025 7:09 PM [facility] Total Protein 8.0 6.0 - 8.0 g/dL LAB CHEMISTRY METHOD 08/15/2025 7:09 PM [facility] Albumin 4.2 3.2 - 5.0 g/dL LAB CHEMISTRY METHOD 08/15/2025 7:09 PM EDT [facility] Total Bilirubin 0.4 0.0 - 1.4 mg/dL LAB CHEMISTRY METHOD 08/15/2025 7:09 PM EDT [facility] Blood Venous blood specimen / Unknown Venipuncture / Unknown 08/15/2025 4:35 PM EDT 08/15/2025 4:35 PM EDT us Chasidy NEWTON LAB BLOOD ORDERABLES Final Re sult [facility] [address] [place] [address], * (ABNORMAL) CBC auto differential (07/17/2025 4:54 PM EDT) WBC 9.3 4.8 - 10.8 K/mcL LAB HEMETOLOGY METHOD 07/17/2025 6:14 PM EDT [facility] RBC 5.50(H) 3.80 - 4.80 M/mcL LAB HEMETOLOGY METHOD 07/17/2025 6:14 PM EDT [facility] Hemoglobin 13.5 11.5 - 16.0 g/dL LAB HEMETOLOGY METHOD 07/17/2025 6:14 PM EDT [facility] Hematocrit 42.5 35.0 - 47.0 % LAB HEMETOLOGY METHOD 07/17/2025 6:14 PM EDT [facility] MCV 78.0(L) 79.0 - 98.0 FL LAB HEMETOLOGY METHOD 07/17/2025 6:14 PM EDT [facility] MCH 24.8(L) 27.0 - 32.0 pcg LAB HEMETOLOGY METHOD 07/17[facility]25 [facility] MCHC 31.8(L) 32.0 - 37.0 g/dL LAB HEMETOLOGY METHOD 07/17/2025 6:14 PM [facility] RDW 14.2 11.0 - 15.0 % LAB HEMETOLOGY METHOD 07/17/2025 6:14 PM [facility] Platelets 372 130 - 400 K/mcL LAB HEMETOLOGY METHOD 07/17/2025 6:14 PM [facility] MPV 10.4 7.0 - 11.0 FL LAB HEMETOLOGY METHOD 07/17/2025 6:14 PM [facility] NRBC 0.0 <1.0 % LAB HEMETOLOGY METHOD 07/17/2025 6:14 PM [facility] NRBC Absolute 0.00 <0.10 K/mcL LAB HEMETOLOGY METHOD 07/17/2025 6:14 PM [facility] Neutrophils Relative 64.6 % LAB HEMETOLOGY METHOD 07/17/2025 6:14 PM [facility] Lymphocytes Relative 26.4 % LAB HEMETOLOGY METHOD 07/17/2025 6:14 PM [facility] Monocytes Relative 6.6 % LAB HEMETOLOGY METHOD 07/17/2025 6:14 PM [facility] Eosinophils Relative 1.5 % LAB HEMETOLOGY METHOD 07/17/2025 6:14 PM [facility] Basophils Relative 0.4 % LAB HEMETOLOGY METHOD 07/17/2025 6:14 PM [facility] Immature Granulocytes Relative 0.5 % LAB HEMETOLOGY METHOD 07/17/2025 6:14 PM [facility] Neutrophils Absolute 6.02 1.50 - 7.00 K/mcL LAB HEMETOLOGY METHOD 07/17/2025 6:14 PM [facility] Lymphocytes Absolute 2.46 1.00 - 5.00 K/mcL LAB HEMETOLOGY METHOD 07/17/2025 6:14 PM EDT [facility] Monocytes Absolute 0.62 0.20 - 1.00 K/[facility] LAB HEMETOLOGY METHOD 07/17/2025 6:14 PM EDT [facility] Eosinophils Absolute 0.14 0.00 - 0.50 K/[facility] LAB HEMETOLOGY METHOD 07/17/2025 6:14 PM EDT [facility] Basophils Absolute 0.04 0.00 - 0.20 K/[facility] LAB HEMETOLOGY METHOD 07/17/2025 6:14 PM EDT [facility] Immature Granulocytes Absolute 0.05(H) 0.00 - 0.03 K/[facility] LAB HEMETOLOGY METHOD 07/17/2025 6:14 PM EDT [facility] Blood Venous blood specimen / Unknown Venipuncture / Unknown 07/17/2025 4:54 PM EDT 07/17/2025 4:54 PM EDT us Chasidy NEWTON LAB BLOOD ORDERABLES Final Re sult [facility] [address] [place] [address], * (ABNORMAL) Iron and TIBC (07/17/2025 4:54 PM EDT) Iron 43 40 - 150 mcg/dL LAB CHEMISTRY METHOD 07/17/2025 6:42 PM EDT [facility] TIBC 409 250 - 450 mcg/dL LAB CHEMISTRY METHOD 07/17/2025 6:42 PM EDT [facility] Iron Saturation 11(L) 15 - 50 % LAB CHEMISTRY METHOD 07/17/2025 6:42 PM EDT [facility] Blood Venous blood specimen / Unknown Venipuncture / Unknown 07/17/2025 4:54 PM EDT 07/17/2025 4:54 PM EDT us Chasidy NEWTON LAB BLOOD ORDERABLES Final Re sult Performing Organization Address [facility]/ZIP Co de Phone Number [facility] [address] [place] [address], [place] [phone] * D-Dimer (07/17/2025 4:54 PM EDT) [facility] D-Dimer, Quant (D-DU) <150 <=230 ng/mL DDU LAB COAGULATION METHOD 07/17/2025 6:19 PM EDT [facility] Blood Venous blood specimen / Unknown Venipuncture / Unknown 07/17/2025 4:54 PM EDT 07/17/2025 4:54 PM EDT Narrative [facility] - 07/17/2025 6:19 PM EDT D-Dimer <230 ng/mL (D-Dimer units) is the threshold for exclusion of DVT/PE. D-Dimer may be elevated in: Critically ill, severely infected, trauma patients, DIC, acute CVA, acute [place], unstable angina, AF, old age, , and smoking. D-Dimer may be decreased with: Initiation of heparin therapy and oral anticoagulants. us Chasidy NEWTON LAB BLOOD ORDERABLES Final Re sult Performing Organization Address [facility]/ZIP Co de Phone Number [facility] [address] [place] [address], [place] [phone] * Ferritin (07/17/2025 4:54 PM EDT) Pathologist [facility] Ferritin 26 8 - 252 ng/mL LAB CHEMISTRY METHOD 07/17/2025 6:43 PM EDT [facility] Blood Venous blood specimen / Unknown Venipuncture / Unknown 07/17/2025 4:54 PM EDT 07/17/2025 4:54 PM EDT us Chasidy NEWTON LAB BLOOD ORDERABLES Final Re sult Performing Organization Address City/[facility]/ZIP Co de Phone Number [facility] [address] [place] [address], [place] [phone] * Microalbumin creatinine urine ratio (05/03/2025 7:55 AM EDT) Creatinine, Urine 191.0 mg/dL LAB CHEMISTRY METHOD 05/03/2025 11:50 AM EDT [facility] Microalb, Ur 16.4 0.0 - 29.0 mg/L LAB CHEMISTRY METHOD 05/03/2025 11:50 AM EDT [facility] Microalb/Creat Ratio 9 <30 mg/g creat LAB CHEMISTRY METHOD 05/03/2025 11:50 AM EDT [facility] Urine Urine specimen obtained by clean catch procedure / Unknown Non-blood Collection / Unknown 05/03/2025 7:55 AM EDT 05/03/2025 7:55 AM EDT Chasidy NEWTON LAB URINE ORDERABLES Final Re sult Performing Organization Address [facility]/ZIP Co de Phone Number [facility] [address] [place] [address], [place] [phone] * Diabetes Foot Exam (04/16/2024) Pathologist [facility] Diabetes: Annual Foot Exam Abstracted Historical Provider HEALTH MAINTENANCE Final Result from Last 3 Months or Most Recently Relevant to Health Maintenance Insurance [facility] Care Teams Opinion Polls Survey Worker Relationship Specialty Start Date End Date Frankie Bains MD [address] [place] [phone] PCP - General 03/04/23
--- OUTSIDE RECORDS SUMMARY | 2025-08-26 17:46 | XMS_ITS | Encounter Summary ---
Author Organization [facility] Address [address] [place] [address] Care Team Providers Care Truck Driver Supervisor Name Role Phone Frankie Bains MD Primary Care Pr ovider Reason for Visit * Reason Onset Date Comments Medication Problem 08/20/2025 Encounter Details Date Type Department Care Team ([facility] Contact Info) Description 08/20/2025 Telephone Adult Medicine [address] [phone] Nikkie Stoner MA Social History Tobacco Use Types Packs/Day Years [...] as of this encounter Progress Notes * Donovan Ferrell - 08/26/2025 8:55 AM EDT Patient is calling to check the status. * Nikkie Stoner MA - 08/20/2025 2:24 PM EDT Medication Problem: What is the name of the medication patient is having a problem with?: Ozempic What is the problem?: needs to be 3 ml and we sent for 2 ml Who is calling about the problem? : A pharmacist: [facility]acy: [facility]ist [facility] Phone # [phone] Is this a NEW medication?: no How long has the patient been taking this medication? Who prescribed this medication for the patient? pcp Who is patients PCP?: Frankie Bains MD Payor: [facility] / Plan: [facility] PPO / Product Type: *No Product type* / documented in this encounter Plan of Treatment Upcoming Encounters Date Type Department Care Team (Late st Contact Info) Description 08/30/2025 2:15 PM EDT Ancillary Procedure [facility] [address] [phone] 09/19/2025 3:45 PM EST Office Visit Pulmonology [facility] 175 [facility] [address] [place] [phone] Gene Quevedo MD [address] [place] [phone] 10/15/2025 3:30 PM EST Nutrition [facility]ric [facility] [place] [address] [phone] [place] [phone] 10/17/2025 4:30 PM EST Office Visit Adult Medicine [address] [phone] Chasidy Stokes PA [address] [place] [address] 10/18/2025 7:00 AM EST Ancillary Procedure [facility] Cardiology [facility] [address] [phone] 01/14/2026 8:15 AM EST Office Visit Bariatric Surgery - [place] [address] [phone] Marilyn Herr MD [address] [place] [phone] documented as of this encounter Visit Diagnoses Not on filedocumented in this encounter Care Teams Truck Driver Supervisor Relationship Specialty Start Date End Date Frankie Bains MD [address] [place] [phone] PCP - General 03/04/23 documented as of this encounter
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
[2025-08-26 18:49] VITALS: BP 156/94; PULSE 87; RESP 16; TEMP 36.9; O2SAT 97
== END 2025-08-26 18:52 | disposition home or self-care (01) ==
PROVIDERS: Physician Assistant Medical; Emergency Provider Emergency Medicine Emergency Medical Services; PCP Physician Assistant
DX: M54.50 Low back pain, unspecified (principal)
CPT/HCPCS: 36415; 72128; 72131; 84702; 96372; 99284; J2270; J8540

== ENCOUNTER → 2025-08-26 15:41 | Outpatient (BNV) | payer OTHER, SELFPAY | PROVIDERS: PCP Physician Assistant; Visit Provider Radiology Diagnostic Radiology | DX: M48.16 Ankylosing hyperostosis [Forestier], lumbar region (principal); M48.12 Ankylosing hyperostosis [Forestier], cervical region | CPT/HCPCS: 72128; 72131 ==